=== PATIENT | female | born 1945 | race Caucasian/White ===

== ENCOUNTER → 2023-07-29 08:43 | Outpatient (REF) | payer MEDICARE, SELFPAY ==
[2023-07-29 11:56] LABS: % Basophils 0.5 % (0-2); % Eosinophils 1.4 % (0-6); % Immature Granulocytes 0.3 % (0-0.5); % Lymphocytes 33.8 % (20.5-51.1); % Monocytes 6.6 % (1.7-9.3); % Neutrophils 57.4 % (42.2-75.2); Absolute Eosinophils 0.1 10^3/uL (0-0.7); Absolute Lymphocytes 2.2 10^3/uL (1.2-3.4); Absolute Monocytes 0.4 10^3/uL (0.1-0.6); Absolute Neutrophils 3.7 10^3/uL (1.4-6.5); Hemoglobin 14.2 g/dL (12.0-16.0); Mean Corp Hgb Conc. 35.5 g/dL (33.0-37.0); Mean Corpuscular Hgb 30.7 pg (27.0-31.0); Mean Corpuscular Volume 86.4 fL (81.0-99.0); Mean Platelet Volume 11.5 fL (7.4-10.4); Nucleated Red Blood Cells % 0 %; Platelet Count 148 10^3/uL (130-400); Red Blood Cell Count 4.63 10^6/uL (4.20-5.40); Red Cell Dist. Width 12.5 % (11.5-14.5); White Blood Cell Count 6.4 10^3/uL (4.8-10.8)
[2023-07-29 12:07] LABS: ALT (SGPT) 11 U/L (0-35); AST (SGOT) 16 U/L (14-36); Albumin 3.7 g/dl (3.5-5.0); Alkaline Phosphatase 79 U/L (38-126); Blood Urea Nitrogen 22 mg/dl (7-17); Calcium 9.5 mg/dl (8.4-10.2); Carbon Dioxide 24 mmol/L (22-30); Chloride 104 mmol/L (98-107); Glucose 117 mg/dl (70-99); Potassium 4.4 mmol/L (3.5-5.1); Sodium 138 mmol/L (135-145); Total Bilirubin 1.1 mg/dl (0.2-1.3); Total Protein 6.5 g/dl (6.3-8.2); eGFR > 60.00
== END ==
LOC: HWLAB 08:43
PROVIDERS: ATTENDING PHYSICIAN Internal Medicine
DX: R05.1 Acute cough (principal); R79.89 Other specified abnormal findings of blood chemistry
CPT/HCPCS: 36415; 80053; 85025

== ENCOUNTER → 2023-11-02 10:12 | Outpatient (REF) | payer MEDICARE, SELFPAY ==
[2023-11-02 15:25] LABS: ALT (SGPT) 11 U/L (0-35); AST (SGOT) 16 U/L (14-36); Albumin 3.8 g/dl (3.5-5.0); Alkaline Phosphatase 80 U/L (38-126); Blood Urea Nitrogen 17 mg/dl (7-17); Calcium 9.3 mg/dl (8.4-10.2); Carbon Dioxide 28 mmol/L (22-30); Chloride 107 mmol/L (98-107); Glucose 121 mg/dl (70-99); Potassium 4.1 mmol/L (3.5-5.1); Sodium 138 mmol/L (135-145); Total Bilirubin 1.2 mg/dl (0.2-1.3); Total Protein 6.7 g/dl (6.3-8.2); eGFR > 60.00
[2023-11-02 15:28] LABS: % Basophils 0.5 % (0-2); % Eosinophils 1.3 % (0-6); % Immature Granulocytes 0.7 % (0-0.5); % Lymphocytes 28.5 % (20.5-51.1); % Monocytes 6.4 % (1.7-9.3); % Neutrophils 62.6 % (42.2-75.2); Absolute Eosinophils 0.1 10^3/uL (0-0.7); Absolute Lymphocytes 1.7 10^3/uL (1.2-3.4); Absolute Monocytes 0.4 10^3/uL (0.1-0.6); Absolute Neutrophils 3.8 10^3/uL (1.4-6.5); Hematocrit 38.8 % (37.0-47.0); Hemoglobin 13.5 g/dL (12.0-16.0); Mean Corp Hgb Conc. 34.8 g/dL (33.0-37.0); Mean Corpuscular Hgb 30.4 pg (27.0-31.0); Mean Corpuscular Volume 87.4 fL (81.0-99.0); Mean Platelet Volume 11.4 fL (7.4-10.4); Nucleated Red Blood Cells % 0 %; Platelet Count 140 10^3/uL (130-400); Red Blood Cell Count 4.44 10^6/uL (4.20-5.40); Red Cell Dist. Width 12.7 % (11.5-14.5); White Blood Cell Count 6.1 10^3/uL (4.8-10.8)
[2023-11-02 15:42] LABS: Vitamin D, 25-OH*** 22.8 ng/mL (30-80)
[2023-11-02 15:56] LABS: TSH Reflex To Free T4 < 0.02 uIU/ml (0.47-4.68)
[2023-11-02 16:25] LABS: Free T4 1.87 ng/dl (0.78-2.19)
[2023-11-03 10:41] LABS: Glycohemoglobin (HgbA1c) 5.7 % (4.0-5.6)
== END ==
LOC: HWLAB 10:12
PROVIDERS: ATTENDING PHYSICIAN Family Medicine
DX: E11.9 Type 2 diabetes mellitus without complications (principal); E03.9 Hypothyroidism, unspecified; E55.9 Vitamin D deficiency, unspecified; R53.83 Other fatigue
CPT/HCPCS: 36415; 80053; 82306; 83036; 84439; 84443; 85025

== ENCOUNTER 2023-12-16 18:07 | Emergency (ER) | payer MEDICARE, SELFPAY ==
[2023-12-16 18:09] VITALS: BP 181/83
--- NOTE | 2023-12-16 20:12 | ED.GENMED ---
History of Present Illness
<Radha Tejada PA-C - Last Filed: 12/18/23 09:38>
General
Chief Complaint: Fall
Source: patient
Exam Limitations: none
Time Seen by Provider: 12/16/23 19:41
Nursing documentation reviewed up to this point in time: agreed with
History of Present Illness
History of Present Illness:
78 Y/O F with h/o HTN, HLD, niddm
mechanical trip and fall at 12 noon today whiile walking with her dog, tripped over a curb and fell onto her knees and hit her breasts and elbow right
no head strike
no presyncopal symptoms
initially painful but able to walk on her legs but as day has gone on she has more pain weight bearing and swelling and bruising to her knee
no thinners
Past History
<JESSICA Coleman Last Filed: 12/18/23 09:38>
Past History
ED Past Medical History: HTN, Hypercholesterolemia and NIDDM
ED Past Surgical History: Gynecological
Social History
Tobacco: Non-smoker
Review of Systems
<JESSICA Coleman Last Filed: 12/18/23 09:38>
Review of Systems
Allergies reviewed?: Yes
All Other Systems: Not applicable
Phy Exam
<JESSICA Coleman Last Filed: 12/18/23 09:38>
Physical Exam
Physical Exam:
GENERAL: Alert , in no apparent distress
HEAD: NCAT
NECK: no midline tenderness, active ROM intact, no paraspinal muscle tenderness;
EYE: pupils equal and reactive, EOMs intact.
ENT: o/p clr, mmm. no hemotympanum
CARDIAC: Regular rate and rhythm, no edema
LUNGS: Clear breath sounds bilaterally, no acute respiratory distress, no wheezes/rales/rhonchi
ABDOMEN: Soft, without focal tenderness, no r/g, no cvat
NEUROLOGICAL: Alert and oriented, no focal neuro deficits, CN intact, 5/5 strength, sensation intact
SKIN: Warm and dry,
MUSCULOSKELETAL: left anterior knee swelling suprapatellar with bruising, superficial abrasion over the patella
some painful ROM past 25 degrees
neg ant/post drawer, no laxity
right elbow abrasion, slightly tender lateral epicondyle
normal rom
no neck tendnresss;
PSYCH: Normal and appropriate interaction.
Course
<Radha Tejada PA-C - Last Filed: 12/18/23 09:38>
Orders/Labs/Results
Orders:
Orders
12/16/23 20:11
Acetaminophen [Tylenol] 650 mg PO NOW STA
CR Elbow - Right Min 3 Views Urgent
Comment:
Reason For Exam: RIGHT ELBOW ABRASION FROM FALL/PAIN
CR Knee - Left 4 Or More View* Urgent
Comment:
Reason For Exam: LEFT KNEE PAIN AFTER FALL
12/16/23 21:58
Tetanus/Diphth/Acelpertussis [Adacel] 0.5 ml IM .ONCE ONE
Vital Signs
Initial and Last Documented VS:
Initial Vital Signs
Temp Pulse Resp BP Pulse Ox
98.2 F 71 18 181/83 98
12/16/23 18:09 12/16/23 18:09 12/16/23 18:09 12/16/23 18:09 12/16/23 18:09
Last Documented Vital Signs
Temp Pulse Resp BP Pulse Ox
98.2 F 71 18 181/83 98
12/16/23 18:09 12/16/23 18:09 12/16/23 18:09 12/16/23 18:12/16/23 18:09
<Wilbert Alvarez Jr., PA-C - Last Filed: 12/16/23 23:12>
Orders/Labs/Results
Orders:
Orders
12/16/23 20:11
Acetaminophen [Tylenol] 650 mg PO NOW STA
CR Elbow - Right Min 3 Views Urgent
Comment:
Reason For Exam: RIGHT ELBOW ABRASION FROM FALL/PAIN
CR Knee - Left 4 Or More View* Urgent
Comment:
Reason For Exam: LEFT KNEE PAIN AFTER FALL
12/16/23 21:58
Tetanus/Diphth/Acelpertussis [Adacel] 0.5 ml IM .ONCE ONE
Vital Signs
Initial and Last Documented VS:
Initial Vital Signs
Temp Pulse Resp BP Pulse Ox
98.2 F 71 18 181/83 98
12/16/23 18:09 12/16/23 18:09 12/16/23 18:09 12/16/23 18:09 12/16/23 18:09
Last Documented Vital Signs
Temp Pulse Resp BP Pulse Ox
98.2 F 71 18 181/83 98
12/16/23 18:09 12/16/23 18:09 12/16/23 18:09 12/16/23 18:09 12/16/23 18:09
<Radha Tejada PA-C - Last Filed: 12/18/23 09:38>
MDM/Problems Addressed
Differential Diagnosis Includes:
contusion, fracture
MDM/Problems Addressed:
78 y/o F mechanical trip and fall
<Wilbert Alvarez Jr., PA-C - Last Filed: 12/16/23 23:12>
MDM/Problems Addressed
MDM/Problems Addressed:
78 y/o F mechanical trip and fall
Care transition to Ed JESSICA Alvarez pending x-rays//
<Wilbert Alvarez Jr., PA-C - Last Filed: 12/16/23 23:12>
*Critical Care Note
Total Time (30-74mins, 75-104mins- exclusive of procedures): Not Applicable
<Wilbert Alvarez Jr., PA-C - Last Filed: 12/16/23 23:12>
Update Note
Update Note:
Patient reassessed after x-rays no signs of fracture. Patient able to ambulate an David bandage was applied to the knees bilaterally. At this point patient stable for discharge return precautions given.
ED Attending Note
<Radha Tejada PA-C - Last Filed: 12/18/23 09:38>
-
Portions of this chart may have been created with voice recognition software.� Occasional wrong word or��sound alike� substitutions may have occurred due to the inherent limitations of voice recognition software.
Discharge Plan
Departure
Patient Disposition: Home (Routine Discharge)
Date of Disposition: 12/16/23
Time of Disposition: 21:58
Patient with high blood pressure during this ER visit?: No
Condition: Good
Covid-19: Not Applicable
Discharge Problem:
Fall, Knee sprain
Instructions: Preventing falls in adults
Referrals:
Justin Bell Jr., DO [Family Provider] -
Thad Baires MD [Active] - Follow up in 5-7 days
Activity Restrictions/Additional Instructions:
You came to the emergency department today after a fall. Here you had a reassuring imaging and were able to ambulate. Please rest ice compress and elevate over the next few days as symptoms will hopefully improve. Return to the emergency
department for any worsening, new or concerning symptoms.
Interventions
Interventions:
*Risk Screen - Suicide Last Done: 12/16/23 18:09
*General Assessment Last Done: 12/16/23 18:09
*Neglect/Abuse Screening Last Done: 12/16/23 18:09
*ED COVID-19 Vaccine History Last Done: 12/16/23 18:09
*Nursing Disposition Last Done: 12/16/23 22:36
ED-Musculoskeletal Assessment Last Done: 12/16/23 19:48
ED- Neurological Assessment Last Done: 12/16/23 19:49
ED-Skin Assessment Last Done: 12/16/23 19:50
Discharge Date and Time
Discharge Date/Time: 12/16/23 22:36
Print Language: TURKISH
[2023-12-16] MEDS: TYLENOL 650 MG PO (20:18)
[2023-12-16] MEDS: ADACEL 0.5 ML IM (22:04)
== END 2023-12-16 22:36 | disposition home or self-care (01) ==
LOC: EMR 18:07
PROVIDERS: EMERGENCY PHYSICIAN Emergency Medicine; FAMILY PHYSICIAN Family Medicine
DX: S83.92XA Sprain of unspecified site of left knee, initial encounter (principal); S80.02XA Contusion of left knee, initial encounter; S80.212A Abrasion, left knee, initial encounter; S50.311A Abrasion of right elbow, initial encounter; M25.462 Effusion, left knee; W10.1XXA Fall (on)(from) sidewalk curb, initial encounter; Y93.K1 Activity, walking an animal; Z23 Encounter for immunization; E11.9 Type 2 diabetes mellitus without complications; E78.00 Pure hypercholesterolemia, unspecified; F32.A Depression, unspecified; I10 Essential (primary) hypertension; Z88.0 Allergy status to penicillin; Z91.048 Other nonmedicinal substance allergy status
CPT/HCPCS: 99284; 90471; 73080; 73564; 90715

== ENCOUNTER → 2023-12-25 10:57 | Outpatient (REF) | payer MEDICARE, SELFPAY | LOC: RAD 10:57 | PROVIDERS: ATTENDING PHYSICIAN Nurse Practitioner Adult Health | DX: R07.81 Pleurodynia (principal); Z91.81 History of falling | CPT/HCPCS: 71101 ==

== ENCOUNTER → 2024-04-27 10:12 | Outpatient (REF) | payer MEDICARE, SELFPAY ==
[2024-04-27 12:14] LABS: % Basophils 0.5 % (0-2); % Eosinophils 0.8 % (0-6); % Immature Granulocytes 0.5 % (0-0.5); % Lymphocytes 22.4 % (20.5-51.1); % Monocytes 5.5 % (1.7-9.3); % Neutrophils 70.3 % (42.2-75.2); Absolute Eosinophils 0.1 10^3/uL (0-0.7); Absolute Lymphocytes 1.4 10^3/uL (1.2-3.4); Absolute Monocytes 0.3 10^3/uL (0.1-0.6); Absolute Neutrophils 4.2 10^3/uL (1.4-6.5); Hematocrit 41.5 % (37.0-47.0); Hemoglobin 14.1 g/dL (12.0-16.0); Mean Corpuscular Hgb 30.3 pg (27.0-31.0); Mean Corpuscular Volume 89.1 fL (81.0-99.0); Mean Platelet Volume 11.4 fL (7.4-10.4); Nucleated Red Blood Cells % 0 %; Platelet Count 151 10^3/uL (130-400); Red Blood Cell Count 4.66 10^6/uL (4.20-5.40)
[2024-04-27 12:21] LABS: ALT (SGPT) 12 U/L (0-35); AST (SGOT) 17 U/L (14-36); Albumin 4.2 g/dl (3.5-5.0); Alkaline Phosphatase 65 U/L (38-126); Blood Urea Nitrogen 12 mg/dl (7-17); Calcium 9.5 mg/dl (8.4-10.2); Carbon Dioxide 27 mmol/L (22-30); Chloride 104 mmol/L (98-107); Glucose 114 mg/dl (70-99); HDL Cholesterol 46 mg/dl; LDL Cholesterol, Calculated 147 mg/dl; Potassium 4.6 mmol/L (3.5-5.1); Sodium 139 mmol/L (135-145); Total Bilirubin 1.2 mg/dl (0.2-1.3); Total Cholesterol 214 mg/dl (50-199); Total Protein 6.9 g/dl (6.3-8.2); Triglyceride 108 mg/dl (10-149); Very Low Density Lipoprotein 21 mg/dl (0-30); eGFR > 60.00
[2024-04-27 12:36] LABS: Vitamin D, 25-OH*** 26.7 ng/mL (30-80)
[2024-04-27 12:50] LABS: TSH Reflex To Free T4 0.37 uIU/ml (0.47-4.68)
[2024-04-27 13:21] LABS: Free T4 1.58 ng/dl (0.78-2.19)
[2024-04-27 13:24] LABS: Glycohemoglobin (HgbA1c) 5.4 % (4.0-5.6)
== END ==
LOC: HWLAB 10:12
PROVIDERS: ATTENDING PHYSICIAN Family Medicine
DX: E11.69 Type 2 diabetes mellitus with other specified complication (principal); E78.00 Pure hypercholesterolemia, unspecified; E03.9 Hypothyroidism, unspecified; E55.9 Vitamin D deficiency, unspecified
CPT/HCPCS: 36415; 80053; 80061; 82306; 83036; 84439; 84443; 85025

== ENCOUNTER → 2025-01-23 10:09 | Outpatient (REF) | payer MEDICARE, SELFPAY ==
[2025-01-23 12:10] LABS: Hematocrit 39.5 % (37.0-47.0); Hemoglobin 13.2 g/dL (12.0-16.0); Mean Corp Hgb Conc. 33.4 g/dL (33.0-37.0); Mean Corpuscular Volume 90.6 fL (81.0-99.0); Nucleated Red Blood Cells % 0 %; Platelet Count 143 10^3/uL (130-400); Red Cell Dist. Width 12.3 % (11.5-14.5)
[2025-01-23 12:33] LABS: Glycohemoglobin (HgbA1c) 5.8 % (4.0-5.6)
[2025-01-23 12:42] LABS: Microalbumin, Random Urine 0.6 mg/dl (0.6-1.7)
[2025-01-23 12:47] LABS: Microalb - Urine Creatinine 111.200 mg/dl
[2025-01-23 13:22] LABS: ALT (SGPT) 15 U/L (0-35); AST (SGOT) 17 U/L (14-36); Albumin 4.1 g/dl (3.5-5.0); Alkaline Phosphatase 69 U/L (38-126); Blood Urea Nitrogen 15 mg/dl (7-17); Calcium 9.1 mg/dl (8.4-10.2); Carbon Dioxide 26 mmol/L (22-30); Chloride 107 mmol/L (98-107); Glucose 118 mg/dl (70-99); HDL Cholesterol 47 mg/dl; Potassium 4.6 mmol/L (3.5-5.1); Sodium 138 mmol/L (135-145); Total Protein 6.8 g/dl (6.3-8.2); Very Low Density Lipoprotein 23 mg/dl (0-30); eGFR > 60.00
[2025-01-23 13:31] LABS: LDL Cholesterol, Calculated 125 mg/dl
== END ==
LOC: HWLAB 10:09
PROVIDERS: ATTENDING PHYSICIAN Family Medicine
DX: M54.2 Cervicalgia (principal); E11.69 Type 2 diabetes mellitus with other specified complication; R42 Dizziness and giddiness; E78.00 Pure hypercholesterolemia, unspecified; E03.9 Hypothyroidism, unspecified
CPT/HCPCS: 36415; 72040; 80053; 80061; 82043; 82570; 83036; 84443; 85025

== ENCOUNTER → 2025-03-12 11:35 | Outpatient (REF) | payer MEDICARE, SELFPAY | LOC: HWRAD 11:35 | PROVIDERS: ATTENDING PHYSICIAN Family Medicine | DX: I65.23 Occlusion and stenosis of bilateral carotid arteries (principal) | CPT/HCPCS: 93880 ==

== ENCOUNTER → 2025-05-29 12:07 | Outpatient (REF) | payer MEDICARE, SELFPAY | LOC: RAD 12:07 | PROVIDERS: ATTENDING PHYSICIAN Internal Medicine; FAMILY PHYSICIAN Family Medicine | DX: M79.675 Pain in left toe(s) (principal); M79.89 Other specified soft tissue disorders | CPT/HCPCS: 73630 ==